=== PATIENT | female | born 1935 | race Caucasian/White ===

== ENCOUNTER 2021-01-15 11:55 | Inpatient (IN) | payer MEDICARE ==
[~2021-01-15] VITALS: Ht 152.4 cm; Wt 47.3 kg
[2021-01-15 14:23] LABS: BASO % 0.4 % (0.0-2.0); EOS # 0.1 K/mm3 (0.0-0.7); EOS % 1.5 % (0-4.0); GRAN # 5.1 K/mm3 (1.4-6.5); GRAN % 75.2 % (42.2-75.2); HEMOGLOBIN 10.5 g/dl (12.5-16.0); LYMPH % 14.6 % (20.0-51.0); MEAN CELL VOLUME 91 fl (80.0-100.0); MEAN CORPUSCULAR HEMOGLOBIN 30 pg (27.0-31.0); MEAN CORPUSCULAR HGB CONC 33 g/dl (33.0-37.0); MEAN PLATELET VOLUME 9.4 fl (7.4-10.4); MONO # 0.5 K/mm3 (0.1-0.6); MONO % 7.7 % (1.7-9.3); PLATELET COUNT 120 K/mm3 (130-400); RED BLOOD COUNT 3.47 M/mm3 (4.10-5.30); REDCELL DISTRIBUTION WIDTH-CV 14.4 % (11.5-14.5)
[2021-01-15 14:24] LABS: HEMATOCRIT 31.5 % (37.0-47.0)
[2021-01-15 14:40] LABS: ALBUMIN 3.5 gm/dL (3.4-4.8); ALKALINE PHOSPHATASE 91 U/L (40-150); ANION GAP 11 mmol/L (7-16); AST,SGOT 21 U/L (5-34); BILIRUBIN,TOTAL 1.4 mg/dL (0.2-1.2); BLOOD UREA NITROGEN 22 mg/dL (10-20); C-REACTIVE PROTEIN 5.53 mg/dL (0.00-0.50); CALCIUM 8.6 mg/dL (8.4-10.2); CARBON DIOXIDE 23 mmol/L (23-31); CHLORIDE 104 mmol/L (98-107); GLUCOSE 81 mg/dL (70-99); POTASSIUM 3.8 mmol/L (3.5-4.5); SODIUM 138 mmol/L (136-145); TOTAL PROTEIN 6.8 gm/dL (6.2-8.1)
[2021-01-15 14:41] LABS: ALANINE AMINOTRANSFERASE < 6 U/L (0-55)
[2021-01-15 14:48] LABS: TROPONIN-I < 0.010 ng/mL (0.00-0.033)
[2021-01-15] MEDS ORDERED: PROTONIX20 MG PO (16:40)
[2021-01-15] MEDS ORDERED: SINEMET 25/101 UDTAB PO (16:40)
[2021-01-15] MEDS ORDERED: SYNTHROID0.05 MG/TA PO (16:40)
--- NOTE | 2021-01-15 19:50 | NUR ---
DAY SHIFT RNCHERYL REPORTS PATIENT ARRIVED TO ROOM 303, PER ADMIT FROM E.D. PUT TO BED.
[2021-01-15 20:05] VITALS: BP 141/59; PULSE 63; TEMP 97.8
--- NOTE | 2021-01-15 20:30 | NUR ---
PATIENT EATING LATE SUPPER TRAY REPORTED BY PCT.
--- NOTE | 2021-01-15 21:30 | NUR ---
PATIENT INCONTINENT OF LARGE AMOUNT OF STOOL AND URINE. PERICARE/INCONTINENT CARE GIVEN, PATIENT TOLERATED REPOSITIONING FOR CLEAN UP FAIRLY WELL WITH SOME COMPLAINTS OF MOVEMENT OF RLE. OBSERVED NO SKIN PROBLEMS TO COCCYX AREA OR BUTTOCKS/LOWER BACK. OBSERVED SKIN TEAR TO L ELBOW, WITH SURROUND SKIN AREA CLEAR OF REDNESS. REMOVED BANDAID DRESSING FROM L ELBOW AREA.
--- NOTE | 2021-01-15 23:40 | NUR ---
REFUSED TO TAKE HS SINEMET, REPORTING NAUSEA WHEN SHE TAKES HER SINEMET WITHOUT FOOD. REFUSED OFFER TO TAKE MED WITH CRACKERS AT THIS TIME.
[2021-01-16] VITALS (8 sets, daily range): BP systolic 112–145; BP diastolic 43–72; PULSE 61–72; TEMP 97.3–98.5
[2021-01-16 06:37] LABS: BASO % 0.4 % (0.0-2.0); EOS # 0.2 K/mm3 (0.0-0.7); GRAN # 3.6 K/mm3 (1.4-6.5); GRAN % 67.6 % (42.2-75.2); LYMPH # 1.1 K/mm3 (1.2-3.4); LYMPH % 20.8 % (20.0-51.0); MEAN CELL VOLUME 93 fl (80.0-100.0); MEAN CORPUSCULAR HGB CONC 32 g/dl (33.0-37.0); MEAN PLATELET VOLUME 9.3 fl (7.4-10.4); MONO # 0.4 K/mm3 (0.1-0.6); MONO % 7.6 % (1.7-9.3); PLATELET COUNT 110 K/mm3 (130-400); RED BLOOD COUNT 3.11 M/mm3 (4.10-5.30); REDCELL DISTRIBUTION WIDTH-CV 14.5 % (11.5-14.5)
[2021-01-16 06:52] LABS: CALCIUM 8.3 mg/dL (8.4-10.2); CREATININE, serum 1.1 mg/dL (0.57-1.11); POTASSIUM 3.8 mmol/L (3.5-4.5)
[2021-01-16 07:00] LABS: HEMATOCRIT 28.8 % (37.0-47.0); HEMOGLOBIN 9.3 g/dl (12.5-16.0); MEAN CORPUSCULAR HEMOGLOBIN 30 pg (27.0-31.0)
--- NOTE | 2021-01-16 07:20 | NUR ---
CHANGE OF SHIFT REPORT GIVEN TO DAY SHIFT RNCHERYL. PATIENT REPORTED NO NEEDS FOR PAIN DURING THE SHIFT DESPITE POSTURING INDICATING DISCOMFORT TO R HIP WITH MOVEMENT. IV FLUIDS INFUSING WITH NO PROBLEMS DURING THE SHIFT.
--- NOTE | 2021-01-16 11:58 | NUR ---
Review for COVID isolation necessity. Patient reports daughter who is nurse did home COVID test 01/03/21 which was positive. Patient is COVID vaccinated. Today is Day 13 post COVID positive test. Patient is afebrile and on room air. Will discontinue COVID isolation. Ronen Conklin RN
--- NOTE | 2021-01-16 12:52 | NUR ---
The patient is in isolation for COVID. FELIPE contacted the patient's daughter, Marleny (ph#[phone]), to discuss discharge plan. Marleny informed FELIPE that she is actually the patient's aadaiole-uc-ilt. She states that the patient lives with her and her (patient's son) Antonio ph#[phone] in [place]. She reports that the patient has been needing assistance with ADLs prior to coming to the hospital and that the patient has a rollator. Marleny reports that her and Antonio have been helping the patient with her ADLs. She states that the patient was just set up with [facility] and that they were suppose to be coming out tomorrow. Marleny reports that the patient was just set up with the PCP, Dr. Ochoa. Her first appointment with Dr. Ochoa is next Tuesday. Marleny reports that the patient was living in [place] for two years and just moved back in with her son and Marleny. The patient does not have a DPOA-HC. Marleny reports that she believes that the patient has a DPOA-HC, but that those documents are back in [place]. Marleny reports that the patient is not and has two living children: Antonio and Jesika. PT is recommending SNF or swing bed. Marleny reports that they would be interested in rehab for the patient. The patient has a pelvic fracture and has been having multiple falls at home. The patient is observation status. FELIPE informed aMrleny that due to the patient's status, that SNF will likely be private pay. Marleny verbalized understanding and expressed her frustration. Marleny reports that her and the patient's son cannot afford to private pay for a facility. She is open for FELIPE to send referrals to [facility] and [facility]. FELIPE consulted [place] with [facility]. Mesha reports that they are not able to take anyone right now, but can re-evaluate on Tuesday. FELIPE contacted and faxed a [facility]. FELIPE contacted and faxed a referral to [facility], MICHELLE, Frankie, and Sof[facility] to inquire if they can consider doing the COVID waiver. Due to the patient also being positive for COVID, FELIPE staffed with the microbiology lab analyst, Lubna. Lubna reports that the patient tested positive on 01/03 and would be able to come out of isolation. SW informed the facilities of this. Nellie, at [facility], reports that due to the patient's worsening symptoms, they would still have to wait another 10 days before considering taking the patient. Awaiting the other facilities screens.
--- NOTE | 2021-01-16 15:30 | NUR ---
Eamon, at [facility], reports that the COVID waiver does not apply to advantage plans. SW inquired if they could still request for auth. Eamon reports that since the patient is observation status, insurance will deny. Gisela, at [facility], reports that the COVID is still good, but cannot take the patient today. Sofy [facility] reports that they have to look more into the patient's insurance and the soonest that they could take the patient, if they accept, would be on Tuesday. René, at [facility], reports he believes the patient will qualify. He states that he go ahead and work on submitting for auth today, but due to the patient having commercial insurance and it being Tuesday, he will probably not hear anything back until Tuesday. FELIPE to update the patient's idneygbu-vj-qul.
--- NOTE | 2021-01-16 15:51 | NUR ---
PT TAKEN OUT OF ISOLATION FOR COVID PER INFECTIOUS DISEASE RN. PT WILL TRANSFER TO SURGICAL UNIT AFTER CT OBTAINED. REPORT GIVEN TO JONN SCHERER.
--- NOTE | 2021-01-16 16:45 | NUR ---
Pt arrived to the floor from CT. Pt is alert and oriented, minimal pain complaints, she states increases with movement, but is tolerable. Gave her fresh ice water and some tylenol for a headache. No other needs, will continue to monitor.
--- NOTE | 2021-01-16 18:00 | NUR ---
Pt requested her evening Sinemet with dinner at this time, which was given. Pt denies any other needs, call light within reach, will continue to monitor
--- NOTE | 2021-01-16 21:00 | NUR ---
PT IN BED, IS ALERT AND ORIENTED X3. HAS IVF TO RFA, INFUSING WITHOUT PROBLEM. DENIES PAIN AT PRESENT TIME, REPORTS ACTIVITY CAUSES PAIN TO RT LEG. TOOK SCHEDULED PM MEDS WITH SUPPER.
[2021-01-17] VITALS (17 sets, daily range): BP systolic 77–138; BP diastolic 32–64; PULSE 50–78; TEMP 94–98.3
--- NOTE | 2021-01-17 00:15 | NUR ---
PT REPOSITIONED IN BED. INCONTINENT OF URINE, PURA CARE GIVEN, ATTENDS CHANGED.
--- NOTE | 2021-01-17 05:39 | NUR ---
PT REFUSED SYNTHROID THIS AM REPORTS SHE ONLY TAKES IT TUE-TUESDAY, NOT ON TUESDAY OR TUESDAY.
--- NOTE | 2021-01-17 06:48 | NUR ---
Report received from GILMER Ulloa. Pt. resting in bed w/ eyes closed. Call light and belongings in reach. Bed alarm on.
[2021-01-17 06:51] LABS: BASO % 0.6 % (0.0-2.0); EOS # 0.2 K/mm3 (0.0-0.7); EOS % 3.2 % (0-4.0); GRAN # 3.4 K/mm3 (1.4-6.5); GRAN % 66.1 % (42.2-75.2); MEAN CELL VOLUME 92 fl (80.0-100.0); MEAN CORPUSCULAR HGB CONC 33 g/dl (33.0-37.0); MEAN PLATELET VOLUME 9.7 fl (7.4-10.4); MONO # 0.5 K/mm3 (0.1-0.6); MONO % 10.5 % (1.7-9.3); PLATELET COUNT 112 K/mm3 (130-400); RED BLOOD COUNT 2.93 M/mm3 (4.10-5.30); REDCELL DISTRIBUTION WIDTH-CV 14.4 % (11.5-14.5)
[2021-01-17 07:01] LABS: HEMATOCRIT 26.9 % (37.0-47.0); HEMOGLOBIN 8.8 g/dl (12.5-16.0); MEAN CORPUSCULAR HEMOGLOBIN 30 pg (27.0-31.0)
[2021-01-17 07:43] LABS: ALBUMIN 2.9 gm/dL (3.4-4.8); CREATININE, serum 0.99 mg/dL (0.57-1.11); MAGNESIUM 1.3 mg/dL (1.6-2.6); PHOSPHOROUS 2.5 mg/dL (2.3-4.7); POTASSIUM 3.4 mmol/L (3.5-4.5)
--- NOTE | 2021-01-17 08:40 | NUR ---
Pt. progressing w/ plan of care. Pt. denies pain. This RN explained to the patient she is NPO for the time being. Needs addressed, call light and belongings in reach.
--- NOTE | 2021-01-17 11:37 | NUR ---
Initial visit attempt; Patient sleeping, Well Driller left Prayer Card letting patient know of the availability of Spiritual Care at our hospital.
--- NOTE | 2021-01-17 11:40 | NUR ---
Plan for pt to go to surgery. Pt. has been NPO except meds. NICHOLAS Chua and Dr. Avendaño notified. Pt.'s bomydljf-jl-cbv Marleny notified on the telephone.
--- NOTE | 2021-01-17 15:52 | NUR ---
Pt. back from surgery. Pt. resting comfortably and requesting food to eat. Plan for pt. to start clear liquids and to advance as tolerated. Pt.'s wjegnsqv-un-qsn Marleny involved with plan of care. Report received from GILMER Hutchinson. Pt.'s circulation checks WNL. Three sites to R hip c/d/i, visible w/ tegaderm and gauze.
--- NOTE | 2021-01-17 17:34 | NUR ---
Pt.'s BP low at this time. Dr. Avendaño called on the phone. Dr. Avendaño made aware of low BP. Unable to get temp at this time, k-pad on patient. ICU called to obtain rectal thermometer. Pt. reports feeling comfortable and tired at this time.
--- NOTE | 2021-01-17 17:52 | NUR ---
NICHOLAS Mirza in this evening. NICHOLAS Mirza aware of pt.'s latest vital signs, fluctuating blood pressure, and her most recent rectal temp. NICHOLAS Mirza reports she will be in to see patient and her dumdsetj-rz-yzs shortly.
--- NOTE | 2021-01-17 19:14 | NUR ---
Report provided to GILMER Anne. Dana has been on patient. Frequent vital signs in place. Plan for a urine using a straight cath to be obtained tonight.
[2021-01-17 19:38] LABS: BASO % 0.3 % (0.0-2.0); EOS # 0.1 K/mm3 (0.0-0.7); EOS % 1.2 % (0-4.0); GRAN # 7.7 K/mm3 (1.4-6.5); GRAN % 71.3 % (42.2-75.2); LYMPH # 1.8 K/mm3 (1.2-3.4); LYMPH % 16.5 % (20.0-51.0); MEAN CELL VOLUME 91 fl (80.0-100.0); MEAN CORPUSCULAR HGB CONC 33 g/dl (33.0-37.0); MEAN PLATELET VOLUME 9.5 fl (7.4-10.4); MONO % 9.5 % (1.7-9.3); PLATELET COUNT 137 K/mm3 (130-400); RED BLOOD COUNT 2.34 M/mm3 (4.10-5.30); REDCELL DISTRIBUTION WIDTH-CV 14.6 % (11.5-14.5)
[2021-01-17 19:39] LABS: HEMATOCRIT 21.2 % (37.0-47.0); MEAN CORPUSCULAR HEMOGLOBIN 30 pg (27.0-31.0)
[2021-01-17 19:56] LABS: ALBUMIN 2.5 gm/dL (3.4-4.8); ALKALINE PHOSPHATASE 71 U/L (40-150); ANION GAP 9 mmol/L (7-16); AST,SGOT 17 U/L (5-34); BILIRUBIN,TOTAL 0.6 mg/dL (0.2-1.2); BLOOD UREA NITROGEN 13 mg/dL (10-20); CALCIUM 7.1 mg/dL (8.4-10.2); CARBON DIOXIDE 16 mmol/L (23-31); CHLORIDE 114 mmol/L (98-107); CREATININE, serum 1.03 mg/dL (0.57-1.11); GLUCOSE 139 mg/dL (70-99); POTASSIUM 3.4 mmol/L (3.5-4.5); SODIUM 139 mmol/L (136-145); TOTAL PROTEIN 4.8 gm/dL (6.2-8.1)
[2021-01-17 20:02] LABS: ALANINE AMINOTRANSFERASE < 6 U/L (0-55)
[2021-01-17 21:37] LABS: COLLECTION METHOD CATHETER
--- NOTE | 2021-01-17 21:40 | NUR ---
Pt. laying in bed. Pt. is A&OX3, assessment complete. IV to rt. forearm patent, IV fluids infusing per orders. Pt. vitals have improved. Spivey catheter placed for urinary incontinence. Pt. tolerated well. Pt. given tramadol for pain of 6 to rt. hip. Bearhugger still on pt., temp has also improved, see vitals. Pt. denies further needs, call light within reach.
[2021-01-17 21:42] LABS: MUCOUS Present (NOT PRESENT); PH 5 (5-8); SQUAMOUS EPITHELIAL None Seen /hpf (0-10); URINE APPEARANCE Clear (CLEAR/HAZY); URINE BACTERIA Rare (NONE SEEN); URINE BILIRUBIN Negative (NEGATIVE); URINE BLOOD Negative (NEGATIVE); URINE COLOR Yellow (YELLOW); URINE GLUCOSE Negative (NEGATIVE); URINE KETONE Negative (NEGATIVE); URINE LEUKOCYTE ESTERASE Trace (NEGATIVE); URINE NITRATE Negative (NEGATIVE); URINE PROTEIN(semi-quant) Negative (NEGATIVE); URINE RBC 0-2 /hpf (0-2); URINE UROBILINOGEN Negative (NEGATIVE)
[2021-01-18] VITALS (15 sets, daily range): BP systolic 96–123; BP diastolic 31–79; PULSE 54–99; TEMP 14
[2021-01-18 07:14] LABS: ALBUMIN 2.2 gm/dL (3.4-4.8); CALCIUM 6.9 mg/dL (8.4-10.2); CREATININE, serum 1.01 mg/dL (0.57-1.11); MAGNESIUM 2.2 mg/dL (1.6-2.6); PHOSPHOROUS 2.5 mg/dL (2.3-4.7); POTASSIUM 4.4 mmol/L (3.5-4.5)
--- NOTE | 2021-01-18 08:20 | NUR ---
Pt. progressing w/ plan of care. Pt. boosted up in bed and assessment complete. Pt. reports generalized pain. Pt. requesting pain medication after she eats her breakfast. Breakfast ordered. SCDs and TEDs on. Call light and belongings in reach, bed alarm on.
[2021-01-18 10:58] LABS: MEAN CELL VOLUME 93 fl (80.0-100.0); MEAN CORPUSCULAR HGB CONC 33 g/dl (33.0-37.0); MEAN PLATELET VOLUME 9.6 fl (7.4-10.4); PLATELET COUNT 124 K/mm3 (130-400); RED BLOOD COUNT 1.39 M/mm3 (4.10-5.30); REDCELL DISTRIBUTION WIDTH-CV 15.1 % (11.5-14.5)
[2021-01-18 11:06] LABS: HEMOGLOBIN 4.2 g/dl (12.5-16.0); MEAN CORPUSCULAR HEMOGLOBIN 30 pg (27.0-31.0)
[2021-01-18 11:07] LABS: HEMATOCRIT 12.9 % (37.0-47.0)
--- NOTE | 2021-01-18 11:08 | NUR ---
Hemoglobin and hematocrit critical results at this time. Dr. Avendaño notified on the telephone. Plans to transfuse blood today. New orders obtained.
--- NOTE | 2021-01-18 11:33 | NUR ---
Ortho HARVEST WORKER FIELD CROP Daphnie and Dr. Stevenson also made aware of pt.'s H&H.
[2021-01-18 13:39] LABS: EOSINOPHIL 1 % (0-4); LYMPHOCYTE 17 % (20.0-51.0); NEUTROPHILS 79 % (42.0-75.2)
[2021-01-18 13:41] LABS: ANISOCYTOSIS 1+; HYPOCHROMIA 1+
[2021-01-18 13:42] LABS: PLATELET ESTIMATE DECREASED (NORMAL)
--- NOTE | 2021-01-18 13:50 | NUR ---
Axillary temp obtained, temp is 94.0. Dr. Avendaño notified. Dr. Avendaño requesting for Bearhugger to be applied as well as continue to begin blood transfusion. The blood transfusion has begun, plan for this RN to stay in pt.'s room for 15 minutes to observe for a transfusion reaction.
--- NOTE | 2021-01-18 15:15 | NUR ---
First of two blood transfusions continues to infuse. No s/s reaction. Bearhugger applied to patient, no improvement in temp at this time. Bearhugger setting changed to high in attempt to elevate pt.'s temperature. Pt. resting in bed w/ eyes closed. Pt.'s son Antonio and hxqdpqah-nq-fey Marleny in to visit today. Family updated on plan of care. Pt. reports she is comfortable. Call light and belongings in reach. Bed alarm on.
--- NOTE | 2021-01-18 18:47 | NUR ---
Pt.'s temp is low, Dr. Avendaño aware. Dr. Avendaño would like for the Beargger to remain on. Pt. on second unit of blood. First 15 minutes of blood transfusion complete, no s/s reaction noted. Plan for this RN to give report to night nurse.
--- NOTE | 2021-01-18 19:30 | NUR ---
Pt. laying in bed. Pt. is A&OX3, assessment complete. IV to lt. forarm patent. Bloot transfusing per orders at this time. Vitals noted. Pt. continues to have low temps but are improving. See vitals. Dressings to rt. hip CDI. Pt. reports pain at a 3 on pain scale. Pt. denies further needs.
--- NOTE | 2021-01-18 21:26 | NUR ---
Pt.'s transfusion complete. Pt. tolerated well.
[2021-01-18 22:25] LABS: HEMATOCRIT 24.2 % (37.0-47.0); HEMOGLOBIN 8.3 g/dl (12.5-16.0)
[2021-01-19] VITALS (7 sets, daily range): BP systolic 91–132; BP diastolic 34–96; PULSE 58–74; TEMP 97.4–98.4
[2021-01-19 06:59] LABS: BASO % 0.4 % (0.0-2.0); EOS # 0.3 K/mm3 (0.0-0.7); EOS % 2.9 % (0-4.0); GRAN # 7.8 K/mm3 (1.4-6.5); GRAN % 70.9 % (42.2-75.2); LYMPH # 1.8 K/mm3 (1.2-3.4); LYMPH % 15.9 % (20.0-51.0); MEAN CELL VOLUME 89 fl (80.0-100.0); MEAN CORPUSCULAR HGB CONC 35 g/dl (33.0-37.0); MEAN PLATELET VOLUME 9.5 fl (7.4-10.4); MONO % 9.4 % (1.7-9.3); PLATELET COUNT 100 K/mm3 (130-400); RED BLOOD COUNT 2.59 M/mm3 (4.10-5.30); REDCELL DISTRIBUTION WIDTH-CV 14.7 % (11.5-14.5)
[2021-01-19 07:00] LABS: HEMATOCRIT 23.1 % (37.0-47.0); MEAN CORPUSCULAR HEMOGLOBIN 31 pg (27.0-31.0)
[2021-01-19 07:14] LABS: ALBUMIN 2.3 gm/dL (3.4-4.8); CALCIUM 7.3 mg/dL (8.4-10.2); CREATININE, serum 1.23 mg/dL (0.57-1.11); PHOSPHOROUS 3.4 mg/dL (2.3-4.7); POTASSIUM 4.6 mmol/L (3.5-4.5)
--- NOTE | 2021-01-19 08:00 | NUR ---
PATIENT IS A&O. VSS. MINIMAL C/O PAIN, RATED AT 3/10. GAVE PRN TYLENOL BEFORE AM THERAPY. RIGHT HIP SITE X3 ARE CD&I WITH GAUZE & TEGA DERM. TEDS & SCD'S T TO BLE. POSITIVE PEDAL PULSES TO BLE. DOTSON TO DD WITH MOD AMOUNTS OF CLEAR YELLOW URINE. IV FLUIDS INFUSING VIA PUMP INTO LEFT FORARM. HEAD TO TOE ASSESSMENT COMPLETE, SEE CHARTING. DNR STATUS. AM MEDS GIVEN. BREAKFAST TRAY AT BEDSIDE. CALL LIGHT IN REACH. BED ALARM ON.
--- NOTE | 2021-01-19 11:16 | NUR ---
Initial visit; Patient declined visit.
--- NOTE | 2021-01-19 15:45 | NUR ---
Transplant Coordinator [facility], and [facility]. SW met with patient and patient's daughter in law, Marleny to follow up on discharge plan. SW reviewed placement options and patient does not feel she can tolerate or wish to do three hours of therapy daily at acute inpatient rehab. Patient would prefer SNF and their first preference would be [facility]. SW asked patient about her insurance as there were conflicting insurance carriers. Patient reports she has a Medicare Advantage Plan ([employer]). Marleny reports she will bring in the card. Patient would like to completed a new DPOA-HC as her previous one was left in [place] when she moved. SW assisted patient in completing form and patient chose to designate Marleny and her grandson, James. FELIPE provided original and copy to patient, then placed copy in patient's chart. FELIPE updated Whitney, IPR Director and René at [facility]. FELIPE also contacted Eamon who continues to screen referral. Patient was made inpatient status over the weekend. Discharge Plan: Pending referrals at [facility] and [facility].
--- NOTE | 2021-01-19 16:05 | NUR ---
Post Splitter faxed clinicals to [facility] for SNF authorization.
[2021-01-20 03:07] VITALS: BP 115/44; PULSE 62; TEMP 97.6
--- NOTE | 2021-01-20 06:03 | NUR ---
PT REFUSING SYNTHROID ET PROTONIX PO @ THIS TIME. PT IS DROWSY ET STATES THAT IT IS TOO EARLY TO TAKE PILLS. PT EDUCATED ON SYNTHROID ADMINISTRATION, SHOWS DISINTREST ET CLOSES EYES. RESPIRATIONS UNLABORED. DOTSON CATHETER DRAINING DEPENDENTLY. URINE IS LIGHT EMERY ET CLEAR. BED ALARM ON. CALL LIGHT WITHIN REACH.
[2021-01-20 06:46] LABS: BASO # 0.1 K/mm3 (0.0-0.2); BASO % 0.6 % (0.0-2.0); EOS # 0.3 K/mm3 (0.0-0.7); EOS % 4.1 % (0-4.0); GRAN # 5.5 K/mm3 (1.4-6.5); GRAN % 66.3 % (42.2-75.2); LYMPH # 1.6 K/mm3 (1.2-3.4); LYMPH % 19.4 % (20.0-51.0); MEAN CELL VOLUME 91 fl (80.0-100.0); MEAN CORPUSCULAR HGB CONC 34 g/dl (33.0-37.0); MEAN PLATELET VOLUME 9.6 fl (7.4-10.4); MONO # 0.7 K/mm3 (0.1-0.6); PLATELET COUNT 100 K/mm3 (130-400); RED BLOOD COUNT 2.54 M/mm3 (4.10-5.30); REDCELL DISTRIBUTION WIDTH-CV 15.4 % (11.5-14.5)
[2021-01-20 06:49] LABS: HEMATOCRIT 23.2 % (37.0-47.0); HEMOGLOBIN 7.9 g/dl (12.5-16.0); MEAN CORPUSCULAR HEMOGLOBIN 31 pg (27.0-31.0)
[2021-01-20 07:04] LABS: ALBUMIN 2.2 gm/dL (3.4-4.8); CALCIUM 7.6 mg/dL (8.4-10.2); CREATININE, serum 1.42 mg/dL (0.57-1.11); MAGNESIUM 1.9 mg/dL (1.6-2.6); PHOSPHOROUS 3.1 mg/dL (2.3-4.7); POTASSIUM 4.4 mmol/L (3.5-4.5)
[2021-01-20 07:55] VITALS: BP 143/49; PULSE 62; TEMP 97.8
--- NOTE | 2021-01-20 08:00 | NUR ---
PATIENT IS A&O. VSS. RATES PAIN IN RIGHT HIP AT REST AT 2-3 ON PAIN SCALE. GAVE PRN TYLENOL BEFORE AM THERAPY. RIGHT HIP DRESSINGS ARE CD&I WITH GAUZE & TEGADERM. TEDS & SCD'S TO BLE. POSITIVE PEDAL PULSES TO BLE. DOTSON TO DD WITH MOD AMOUNTS OF CLEAR YELLOW URINE NOTED. LEFT FORARM IV TO INT. AM MEDS GIVEN WITH BREAKFAST. HEAD TO TOE ASSESSMENT COMPLETE, SEE CHARTING. DNR STATUS. NO OTHER NEEDS AT THIS TIME. CALL LIGHT IN REACH. BED ALARM ON.
[2021-01-20 12:00] VITALS: BP 78/50; PULSE 62; TEMP 97.3
--- NOTE | 2021-01-20 12:40 | NUR ---
PCT REPORTED LOW B/P, CHECKED TWICE. HOSPITALIST AT BEDSIDE. PATIENT ASSISTED BACK INTO BED. IV FLUIDS STARTED. B/P RECHECK IS NOW 102/53. PATIENT RESTING FINE AND IS STABLE. FAMILY AT BEDSIDE.
[2021-01-20 13:00] VITALS: BP 102/53
--- NOTE | 2021-01-20 13:50 | NUR ---
HOSPITALIST AT BEDSIDE, SEE ORDERS.
--- NOTE | 2021-01-20 13:57 | NUR ---
Operative Supervisor received a phone call from [facility] and was advised that they do not manage patient's plan. FELIPE provided this update to Eamon who advised he followed up with [facility] and according to them, [facility] does manage the plan. FELIPE followed up with [facility] and had this case escalated. FELIPE received a call back from [facility] and confirmed they do in fact manage this patient's plan. [facility] provided authorization reference #[id number] and advised patient could go to SNF today or tomorrow. FELIPE provided this number to Eamon at [facility] who advised they are able to accept patient at time of discharge. FELIPE attended clinical rounds with the team and patient is not ready discharge for today, but will likely be ready tomorrow. FELIPE updated patient and her daughter in law, Marleny that [facility] can accept. Patient is agreeable to this plan. Discharge Plan: [facility].
[2021-01-20 17:51] VITALS: BP 142/44; PULSE 67; TEMP 97.7
--- NOTE | 2021-01-20 20:30 | NUR ---
PT RESTING IN BED WITH HEAD ELEVATED. IVF INFUSING INTO PERIPHERAL IV IN LEFT FOREARM. PT STATES THAT THE SHEETS OVER HER ARE WET. PT'S IV IS SEEN LEAKING. DENIES PAIN @ SITE BUT THERE IS REDNESS. IV IS DISCONTINUED ET Yohan LEE RN SUCCESSFULLY INSERTS NEW IV INTO PT'S RIGHT FOREARM. SITE IS PINK ET FLUSHES EASILY. IVF ARE RESUMED. PT'S DOTSON CATHETER WAS TAKEN OUT BY DAY SHIFT NURSE. PT HAS NOT URINATED. PT DENIES OTHER NEEDS. BED ALARM ON. CALL LIGHT WITHIN REACH.
[2021-01-20 22:57] VITALS: BP 105/38; PULSE 79; TEMP 97.7
[2021-01-21 00:11] VITALS: BP 135/49; PULSE 71; TEMP 97.8
--- NOTE | 2021-01-21 06:30 | NUR ---
Report received from GILMER Quevedo. Patient is resting comfortably in bed. Call light and bedside table are within reach. WIll continue to monitor patient throughout shift.
--- NOTE | 2021-01-21 07:08 | NUR ---
PT RESTING IN BED @ THIS TIME, ORIENTED X4, IS [place]. PT WAS ASSISTED X1 TO BSC LAST NIGHT, WAS INCONTINENT OF URINE. TRANSFERRED WITH 2 ASSIST, GAIT BELT ET WALKER. PT IS HESITANT TO MOVE ET VERY SLOWLY SHUFFLES. PT INCONTINENT OF URINE AGAIN THIS MORNING AFTER SLEEPING MOST OF NIGHT. LINENS ARE CHANGED ET INCONTINENT CARE PROVIDED. PT'S POSTERIOR LABIA IS NOTICED TO BE EDEMATOUS, PT DENIES PAIN IN THAT AREA. SKIN IS NOT RED BUT IS PINK. PT DENIES PAIN @ REST BUT GRIMACES ET GROANS WHILE ROLLING IN BED. IVF INFUSING. PT DENIES OTHER NEEDS. BED ALARM ON. CALL LIGHT WITHIN REACH.
[2021-01-21 08:02] VITALS: BP 135/45; PULSE 51; TEMP 97.6
[2021-01-21 08:14] LABS: CALCIUM 7.6 mg/dL (8.4-10.2); CREATININE, serum 1.2 mg/dL (0.57-1.11); MAGNESIUM 1.7 mg/dL (1.6-2.6); PHOSPHOROUS 2.8 mg/dL (2.3-4.7); POTASSIUM 4.5 mmol/L (3.5-4.5)
[2021-01-21 08:15] LABS: BASO # 0.1 K/mm3 (0.0-0.2); BASO % 0.9 % (0.0-2.0); EOS # 0.3 K/mm3 (0.0-0.7); EOS % 4.3 % (0.0-4.0); GRAN # 3.6 K/mm3 (1.4-6.5); GRAN % 61.8 % (42.2-75.2); HEMOGLOBIN 7.7 g/dl (12.5-16.0); LYMPH # 1.2 K/mm3 (1.2-3.4); LYMPH % 20.8 % (20.0-51.0); MEAN CELL VOLUME 92 fl (80.0-100.0); MEAN CORPUSCULAR HEMOGLOBIN 31 pg (27-31); MEAN CORPUSCULAR HGB CONC 34 g/dl (33.0-37.0); MEAN PLATELET VOLUME 9.6 fl (7.4-10.4); MONO # 0.7 K/mm3 (0.1-0.6); MONO % 11.2 % (1.7-9.3); PLATELET COUNT 115 K/mm3 (130-400); RED BLOOD COUNT 2.47 M/mm3 (4.10-5.30); REDCELL DISTRIBUTION WIDTH-CV 15.5 % (11.5-14.5)
[2021-01-21 08:16] LABS: HEMATOCRIT 22.6 % (37.0-47.0)
[2021-01-21] MEDS ORDERED: ASPI325T6 PO (08:30)
[2021-01-21] MEDS ORDERED: TYLENOL 325MG325 MG PO (08:30)
--- NOTE | 2021-01-21 12:19 | NUR ---
Patient has been discharged from room [address] to [facility]. The room has been cleared of personal belongings, include cell phone and archives specialist. Packet given to the transportation team. Patient was also escorted out by the SOCIAL MEDIA CONTENT SPECIALIST.
--- NOTE | 2021-01-21 13:28 | NUR ---
Drafter (Cad) Electrical was notified that patient is ready for discharge today. FELIPE contacted [facility] who advised they can accept patient and set discharge time for 1145. FELIPE provided discharge time to patient who is in agreement and asked FELIPE to contact Marleny as she needs to go to the bathroom. FELIPE contacted patient's DPOA-HC, Marleny to provide update on discharge time. FELIPE also reviewed IM form over the phone with Marleny who provided verbal consent as signature. FELIPE placed form on chart and placed copy in patient's discharge packet. FELIPE faxed discharge orders and negative COVID results to Eamon at [facility]. Discharge Plan: [facility] SNF
== END 2021-01-21 12:15 | DRG 956 ==
LOC: COL.ER 11:55 → MEDICAL 16:57 → SURG 16:57
PROVIDERS: Nurse Practitioner; Orthopaedic Surgery Sports Medicine; Physician Assistant; Student in an Organized Health Care Education/Training Program; ADMIT Internal Medicine
PROC: 0QH634Z Insertion of Internal Fixation Device into Right Upper Femur, Percutaneous Approach (ICD-10-PCS; principal; 2021-01-17 13:00)
DX: S72.114A Nondisplaced fracture of greater trochanter of right femur, initial encounter for closed fracture (principal); S32.591A Other specified fracture of right pubis, initial encounter for closed fracture; U07.1 COVID-19; S32.431A Displaced fracture of anterior column [iliopubic] of right acetabulum, initial encounter for closed fracture; J12.82 Pneumonia due to coronavirus disease 2019; N17.9 Acute kidney failure, unspecified; D62 Acute posthemorrhagic anemia; G20 Parkinson's disease; E03.9 Hypothyroidism, unspecified; I10 Essential (primary) hypertension; K21.9 Gastro-esophageal reflux disease without esophagitis; E87.6 Hypokalemia; E83.42 Hypomagnesemia; Z66 Do not resuscitate; I95.9 Hypotension, unspecified; Z87.891 Personal history of nicotine dependence; W18.39XA Other fall on same level, initial encounter; Y93.89 Activity, other specified; Y92.89 Other specified places as the place of occurrence of the external cause; Z23 Encounter for immunization
CPT/HCPCS: OP; 99232-AI; 99233-AI; 99239; A4314; A9284; C1713; G0378; J0696; J1644; J2270; J2405; J2704; J2795; J3475; J3480; J7030; J7040; J7120; P9016

== ENCOUNTER 2021-01-27 13:41 | Emergency (ER) | payer MEDICARE ==
[~2021-01-27] VITALS: Ht 152.4 cm; Wt 52.7 kg
[~2021-01-27 13:41] MED LIST: ASPI325T6 PO; PROTONIX20 MG PO; SINEMET 25/101 UDTAB PO; SYNTHROID0.05 MG/TA PO; TYLENOL 325MG325 MG PO
[2021-01-27 14:19] LABS: MEAN CELL VOLUME 92 fl (80.0-100.0); MEAN CORPUSCULAR HGB CONC 33 g/dl (33.0-37.0); MEAN PLATELET VOLUME 8.8 fl (7.4-10.4); PLATELET COUNT 180 K/mm3 (130-400); RED BLOOD COUNT 2.99 M/mm3 (4.10-5.30); REDCELL DISTRIBUTION WIDTH-CV 15.6 % (11.5-14.5)
[2021-01-27 14:25] LABS: HEMATOCRIT 27.4 % (37.0-47.0); HEMOGLOBIN 9.1 g/dl (12.5-16.0); MEAN CORPUSCULAR HEMOGLOBIN 30 pg (27-31)
[2021-01-27 14:28] LABS: PROTHROMBIN TIME 11.5 SECONDS (9.7-12.8)
[2021-01-27 14:31] LABS: PARTIAL THROMBOPLASTIN TIME 30.2 SECONDS (26.0-37.0)
[2021-01-27 14:43] LABS: ALBUMIN 2.7 gm/dL (3.4-4.8); ALKALINE PHOSPHATASE 117 U/L (40-150); ANION GAP 11 mmol/L (7-16); AST,SGOT 15 U/L (5-34); BILIRUBIN,TOTAL 1.4 mg/dL (0.2-1.2); BLOOD UREA NITROGEN 23 mg/dL (10-20); CARBON DIOXIDE 22 mmol/L (23-31); CHLORIDE 101 mmol/L (98-107); CREATININE, serum 1.18 mg/dL (0.57-1.11); GLUCOSE 91 mg/dL (70-99); SODIUM 134 mmol/L (136-145); TOTAL PROTEIN 5.5 gm/dL (6.2-8.1)
[2021-01-27 14:48] LABS: ALANINE AMINOTRANSFERASE < 6 U/L (0-55)
[2021-01-27 14:52] LABS: ANISOCYTOSIS 1+; BAND 1 % (0-10); EOSINOPHIL 2 % (0-4); NEUTROPHILS 75 % (42.0-75.2); PLATELET ESTIMATE NORMAL (NORMAL)
[2021-01-27 14:53] LABS: LYMPHOCYTE 14 % (20.0-51.0)
[2021-01-27 15:42] VITALS: BP 113/50; PULSE 55
== END 2021-01-27 15:55 ==
LOC: COL.ER 13:41
PROVIDERS: Emergency Medicine
DX: M96.830 Postprocedural hemorrhage of a musculoskeletal structure following a musculoskeletal system procedure (principal); G20 Parkinson's disease; K21.9 Gastro-esophageal reflux disease without esophagitis; E03.9 Hypothyroidism, unspecified; Z79.890 Hormone replacement therapy; Z79.899 Other long term (current) drug therapy
CPT/HCPCS: J7030

== ENCOUNTER 2021-01-29 15:36 | Inpatient (IN) | payer MEDICARE ==
[~2021-01-29] VITALS: Ht 152.4 cm; Wt 58.6 kg
[2021-01-29 16:59] LABS: MEAN CELL VOLUME 93 fl (80.0-100.0); MEAN CORPUSCULAR HGB CONC 33 g/dl (33.0-37.0); MEAN PLATELET VOLUME 8.7 fl (7.4-10.4); PLATELET COUNT 193 K/mm3 (130-400); RED BLOOD COUNT 2.74 M/mm3 (4.10-5.30); REDCELL DISTRIBUTION WIDTH-CV 15.4 % (11.5-14.5)
[2021-01-29 17:00] LABS: HEMATOCRIT 25.4 % (37.0-47.0); HEMOGLOBIN 8.3 g/dl (12.5-16.0); MEAN CORPUSCULAR HEMOGLOBIN 30 pg (27-31)
[2021-01-29 17:17] LABS: ALBUMIN 2.5 gm/dL (3.4-4.8); ALKALINE PHOSPHATASE 109 U/L (40-150); ANION GAP 10 mmol/L (7-16); AST,SGOT 14 U/L (5-34); BILIRUBIN,TOTAL 1.1 mg/dL (0.2-1.2); BLOOD UREA NITROGEN 21 mg/dL (10-20); CALCIUM 8.1 mg/dL (8.4-10.2); CARBON DIOXIDE 24 mmol/L (23-31); CHLORIDE 103 mmol/L (98-107); CREATININE, serum 1.14 mg/dL (0.57-1.11); GLUCOSE 86 mg/dL (70-99); POTASSIUM 4.1 mmol/L (3.5-4.5); SODIUM 137 mmol/L (136-145); TOTAL PROTEIN 5.5 gm/dL (6.2-8.1)
[2021-01-29 17:18] LABS: ALANINE AMINOTRANSFERASE < 6 U/L (0-55)
[2021-01-29 17:43] LABS: BAND 2 % (0-10); EOSINOPHIL 1 % (0-4); LYMPHOCYTE 18 % (20.0-51.0); NEUTROPHILS 69 % (42.0-75.2); PLATELET ESTIMATE NORMAL (NORMAL)
[2021-01-29 22:18] VITALS: BP 95/61; PULSE 51; TEMP 97.2
[2021-01-29] MEDS ORDERED: ULTRAM 50MG TAB50 MG PO (22:31)
[2021-01-29] MEDS ORDERED: MIRALAX PA17 GM/Dose PO ×2 (22:32→22:33)
[2021-01-29] MEDS ORDERED: SENNA-LAX8.6 MG PO (22:34)
[2021-01-29] MEDS ORDERED: COLACE 100100 MG/CAP PO (22:35)
[2021-01-29] MEDS ORDERED: SYNTHROID0.05 MG/TA PO (22:41)
[2021-01-29] MEDS ORDERED: PROTONIX 40MG T40 MG PO (22:43)
[2021-01-29] MEDS ORDERED: TYLENOL 325MG325 MG PO (22:50)
[2021-01-29 23:43] VITALS: BP 103/57; PULSE 53; TEMP 97.5
[2021-01-30 00:30] LABS: COLLECTION METHOD CATHETER
[2021-01-30 00:36] LABS: PH 5 (5-8); SQUAMOUS EPITHELIAL None Seen /hpf (0-10); URINE APPEARANCE Clear (CLEAR/HAZY); URINE BACTERIA None Seen /hpf (NONE SEEN); URINE BILIRUBIN Negative (NEGATIVE); URINE BLOOD 1+ (NEGATIVE); URINE COLOR Yellow (YELLOW); URINE GLUCOSE Negative (NEGATIVE); URINE KETONE Negative (NEGATIVE); URINE LEUKOCYTE ESTERASE Trace (NEGATIVE); URINE NITRATE Negative (NEGATIVE); URINE PROTEIN(semi-quant) Negative (NEGATIVE); URINE RBC 0-2 /hpf (0-2); URINE UROBILINOGEN Negative (NEGATIVE)
[2021-01-30 04:29] VITALS: BP 95/55; PULSE 56; TEMP 97.1
--- NOTE | 2021-01-30 05:28 | NUR ---
PT SLEEPING @ THIS TIME. RESPIRATIONS UNLABORED. IVF INFUSING. BED ALARM ON. CALL LIGHT WITHIN REACH. PT ARRIVED TO UNIT LAST NIGHT @ 2200 FROM ED. TRANSFERRED FROM CART TO BED WITH 3 ASSIST ET SLIDEBOARD. PT HAS HIP SPICA DRESSING IN PLACE TO RIGHT HIP ET BUTTOCK. DOTSON CATHETER DRAINING CLEAR YELLOW URINE. PT DENIES PAIN @ REST BUT GRIMACES ET GROANS WHEN REPOSITIONED. PT IS A&O X4 BUT IS FORGETFUL. PT REFUSED SENEMET LAST NIGHT, STATED THAT SHE WOULD BECOME NAUSEOUS ET SICK IF SHE TOOK IT WITHOUT FOOD. PT OFFERED SNACK BUT CONTINUED TO REFUSE MEDICATION. PT DID EAT SNACK OF PUDDING WITH NO PROBLEMS, DENIES ANY NAUSEA. ICE PACK PLACED TO RIGHT HIP. SCDs IN PLACE TO BILATERAL LEGS. BILATERAL LOWER EXTREMITIES ARE EDEMATOUS ET BRUISED. MEPILEX DRESSING IS IN PLACE TO LEFT ELBOW OVER SKIN TEAR, PT STATES THAT IT IS FROM ONE OF HER FALLS. PT EDUCATED HELPER METAL HANGING LIGHT ET FALL PRECAUTIONS, DEMONSTRATES UNDERSTANDING.
[2021-01-30 07:20] LABS: BASO # 0.1 K/mm3 (0.0-0.2); BASO % 1.2 % (0.0-2.0); EOS # 0.3 K/mm3 (0.0-0.7); EOS % 5.9 % (0.0-4.0); GRAN # 2.6 K/mm3 (1.4-6.5); GRAN % 59.8 % (42.2-75.2); LYMPH % 22.5 % (20.0-51.0); MEAN CELL VOLUME 92 fl (80.0-100.0); MEAN CORPUSCULAR HGB CONC 33 g/dl (33.0-37.0); MEAN PLATELET VOLUME 8.8 fl (7.4-10.4); MONO # 0.4 K/mm3 (0.1-0.6); MONO % 9.2 % (1.7-9.3); PLATELET COUNT 175 K/mm3 (130-400); REDCELL DISTRIBUTION WIDTH-CV 15.4 % (11.5-14.5)
[2021-01-30 07:24] LABS: HEMATOCRIT 24.9 % (37.0-47.0); HEMOGLOBIN 8.2 g/dl (12.5-16.0); MEAN CORPUSCULAR HEMOGLOBIN 30 pg (27-31)
[2021-01-30 07:38] LABS: CREATININE, serum 1.05 mg/dL (0.57-1.11)
[2021-01-30 08:14] VITALS: BP 95/51; PULSE 56; TEMP 97.7
[2021-01-30 13:05] VITALS: BP 81/41; PULSE 57; TEMP 97.9
[2021-01-30 16:40] VITALS: BP 83/52; PULSE 54; TEMP 97.6
[2021-01-30 17:41] LABS: HEMOGLOBIN 7.8 g/dl (12.5-16.0)
--- NOTE | 2021-01-30 19:15 | NUR ---
RECEIVED CHANGE OF SHIFT REPORT FROM DAY SHIFT RN.
[2021-01-30 19:20] VITALS: BP 89/57; PULSE 81; TEMP 98
[2021-01-30 22:51] VITALS: BP 90/59; PULSE 69; TEMP 98
[2021-01-31 03:35] VITALS: BP 84/55; PULSE 60; TEMP 98
--- NOTE | 2021-01-31 06:51 | NUR ---
CHANGE OF SHIFT REPORT GIVEN TO DAY SHIFT RNPRINCE.
[2021-01-31 07:00] LABS: BASO % 0.6 % (0.0-2.0); EOS # 0.3 K/mm3 (0.0-0.7); EOS % 6.4 % (0.0-4.0); GRAN # 3.3 K/mm3 (1.4-6.5); GRAN % 67.7 % (42.2-75.2); LYMPH # 0.8 K/mm3 (1.2-3.4); LYMPH % 16.5 % (20.0-51.0); MEAN CELL VOLUME 94 fl (80.0-100.0); MEAN CORPUSCULAR HGB CONC 32 g/dl (33.0-37.0); MEAN PLATELET VOLUME 8.8 fl (7.4-10.4); MONO # 0.4 K/mm3 (0.1-0.6); MONO % 7.6 % (1.7-9.3); PLATELET COUNT 173 K/mm3 (130-400); RED BLOOD COUNT 2.52 M/mm3 (4.10-5.30); REDCELL DISTRIBUTION WIDTH-CV 15.8 % (11.5-14.5)
[2021-01-31 07:23] LABS: HEMATOCRIT 23.8 % (37.0-47.0); HEMOGLOBIN 7.7 g/dl (12.5-16.0); MEAN CORPUSCULAR HEMOGLOBIN 31 pg (27-31)
[2021-01-31 07:29] LABS: CALCIUM 7.7 mg/dL (8.4-10.2); CREATININE, serum 0.88 mg/dL (0.57-1.11); POTASSIUM 3.8 mmol/L (3.5-4.5)
[2021-01-31 08:19] VITALS: BP 91/49; PULSE 61; TEMP 97.6
--- NOTE | 2021-01-31 10:19 | NUR ---
Patient assisted to the bathroom by this RN. Patient had a medium sized, formed BM. Spica is CDI. Patient c/o mild pain only when moving. Requested to stay sitting in wheelchair, as the recliner is too uncomfortable.
[2021-01-31 11:24] VITALS: BP 104/52; PULSE 60; TEMP 97.4
--- NOTE | 2021-01-31 11:30 | NUR ---
Received report from GILMER Bose. Pt is alert and oriented with hip spica in place. Assisted pt to the commode as she stated she felt she needed an bowel movement. Pt did have some smear on her bed pad. Call light within reach
--- NOTE | 2021-01-31 12:00 | NUR ---
Assisted pt back to bed. She was not able to have a bowel movement. Pt wanting to rest, no other needs verbalized
--- NOTE | 2021-01-31 14:30 | NUR ---
Pt family brought her in something to eat. Pt grateful as she did not want the lunch provided by the hospital. Pain not having any pain complaints at this time. Hip spica remains in place. Call light within reach, will continue to monitor
[2021-01-31 16:29] VITALS: BP 128/49; PULSE 61; TEMP 97.7
[2021-01-31 19:01] VITALS: BP 135/65; PULSE 64; TEMP 98.2
--- NOTE | 2021-01-31 19:03 | NUR ---
RECEIVED CHANGE OF SHIFT REPORT FROM DAY SHIFT RN.
--- NOTE | 2021-01-31 22:00 | NUR ---
PATIENT HAD COMPLAINED OF DIZZINESS WHEN EATING DURING SUPPER, CURRENTLY RESTING/SLEEPING, DOES NOT WAKE WHEN NURSING ENTERS ROOM. OBSERVED BREATHING NONLABORED AND EVEN. DOTSON IN PLACE. REMAINS ON ROOM AIR. IV FLUIDS INFUSING WITH NO PROBLEMS.
[2021-01-31 23:21] VITALS: BP 106/41; PULSE 63; TEMP 98
--- NOTE | 2021-02-01 02:12 | NUR ---
PATIENT REPOSITIONED UP IN BED AFTER WAKING FROM SLEEP WHEN NURSING ENTERED ROOM TO ADD IV FLUIDS TO CURRENT IV LINE. DENIES ANY CHEST PAIN/SOA AT THIS TIME. REMAINS ON ROOM AIR. DOTSON IN PLACE. IV FLUIDS INFUSING WITH NO PROBLEMS.
[2021-02-01 02:57] VITALS: BP 134/50; PULSE 57; TEMP 98
--- NOTE | 2021-02-01 02:57 | NUR ---
DENIES C/O DIZZINESS WHEN UP TO BSC, ABLE TO STAND DURING REWRAPPING OF R HIP SPICA. NO ACTIVE DRAINAGE FROM R HIP INCISIONAL AREA WITH ABD DRSG CLEAR/NO DRAINAGE OBSERVED.
--- NOTE | 2021-02-01 07:06 | NUR ---
CHANGE OF SHIFT REPORT GIVEN TO DAY SHIFT RNJILLIAN.
[2021-02-01 07:49] VITALS: BP 141/41; PULSE 62; TEMP 97.8
--- NOTE | 2021-02-01 11:18 | NUR ---
Patient alert and oriented, answers questions appropriately. See assessment. Left gluteal hematoma with moderate bruising, swelling noted. Incision from previous right gamma nail with edges well approximated, slight redness, no drainage noted. FWB. Uses walker and gait belt for ambulation. No c/o at this time.
[2021-02-01 12:06] VITALS: BP 128/44; PULSE 62; TEMP 98.3
--- NOTE | 2021-02-01 15:22 | NUR ---
Spivey catheter discontinued per Drs order, tolerated well. Светлана-care completed.
[2021-02-01 15:45] VITALS: BP 122/42; PULSE 61; TEMP 97.7
--- NOTE | 2021-02-01 16:18 | NUR ---
Aliyah met with the pt, daughter ,Marleny bedside [phone]. The pt came from [facility] for rehab. The daughter reports her mother PCP is Jak Kenney and gets medications from [facility]. The does have DPOA-hc and its Nambe. The daughter reports she is upset how her mother has been treated and no one is contacting her. Aliyah requested Dr. Avendaño speak to daughter. D/c: back to [facility]
--- NOTE | 2021-02-01 16:30 | NUR ---
Report to Dr Avendaño urine culture with yeast growth, states no treatment needed.
--- NOTE | 2021-02-01 18:00 | NUR ---
Patient c/o vaginal itching, Yuki PETERSON, notified. Order for Diflucan received.
[2021-02-01 19:06] VITALS: BP 116/44; PULSE 66; TEMP 98
--- NOTE | 2021-02-01 21:52 | NUR ---
IV ROCEPHIN GIVEN PER PATENT SL TO LEFT FOREARM. REFUSED HS SINEMET.
--- NOTE | 2021-02-02 00:05 | NUR ---
PT INCONTINENT OF URINE. HAS REDNESS AND SWELLING OF LABIA. REDNESS TO PURA AREA WELL. REMOVED FOAM DRSG TO COCCYX, HAS MEPILEX TO RT HIP AND FOAM DRSG TO SPINE X2. INCISIONS X3 TO RT HIP, SMALL BRUISE TO RT BUTTOCK. EDEMA PRESENT TO BOTH LOWER LEGS. HAS SCDS ON. SL TO LEFT FOREARM FLUSHES WELL. IS ALERT AND ORIENTED.
[2021-02-02 03:32] VITALS: BP 120/49; PULSE 58; TEMP 97.9
[2021-02-02 08:00] VITALS: BP 125/46; PULSE 62; TEMP 97.4
--- NOTE | 2021-02-02 09:50 | NUR ---
Clinical updates faxed to Eamon at [facility]. Carla swab requested and awaiting clinical review from [facility] on a transportation time.
[2021-02-02] MEDS ORDERED: DIFLUCAN150 MG PO ×2 (10:54)
[2021-02-02] MEDS ORDERED: FERROUS SU325 MG/TAB PO (10:55)
[2021-02-02 11:31] VITALS: BP 111/46; PULSE 60; TEMP 97.2
--- NOTE | 2021-02-02 12:04 | NUR ---
Patient alert and oriented, answers questions appropriately. See assessment. Right gluteal hematoma with slight bruising noted, no drainage noted to site. FWB to RLE. Previous right hip gamma nail site with edges well approximated, no redness or drainage noted. Patient has 2+ edema noted to labia with redness noted, complains of itching to labia. No other c/o pain or discomfort. No other c/o at this time.
--- NOTE | 2021-02-02 13:26 | NUR ---
SW contacted by [facility] who states that they are able to accept this patient. [facility] contacted x2. Each occurrence the rep was able to start an authorization but due to their system failure, both were unsuccessful. Contact made with [facility] to informed of the above. Emails and messages left with [facility] representatives.
--- NOTE | 2021-02-02 15:23 | NUR ---
Third phone call made to Anh. Rep states that she will have to put in a ticket as the patient's insurance is not showing accurate effective dates which is why the authorization is not going through. Biller states she will call me in an hour with a reference number for the phone call.
[2021-02-02 16:00] VITALS: BP 123/48; PULSE 56
[2021-02-02 19:22] VITALS: BP 146/61; PULSE 68; TEMP 97.2
--- NOTE | 2021-02-02 21:18 | NUR ---
MEDICATED WITH TRAMADOL 50MG PO FOR RT HIP PAIN.
[2021-02-03 00:31] VITALS: BP 135/52; PULSE 57; TEMP 97.5
--- NOTE | 2021-02-03 02:04 | NUR ---
ASSESSMENT DONE. INT TO L FA PATENT. SOME C/O NAUSEA, EMESIS BUCKET PROVIDED, REFUSED ZOFRAN. REDNESS NOTED UNDER BOTH BREASTS. DENIES PAIN. CALL LIGHT MONTRELL CAMPO.
[2021-02-03 03:45] VITALS: BP 112/55; PULSE 74; TEMP 97.6
[2021-02-03 07:54] VITALS: BP 127/48; PULSE 65; TEMP 97.8
--- NOTE | 2021-02-03 11:15 | NUR ---
[facility] provided Reference # [id number] for patient's skilled care stay at [facility] today. community health outreach worker met with patient and contacted Marleny Cobb via phone and presented IM. Eamon accepts patient for a skilled stay at [facility] today and arranges their facility van to transport today at 2:00. Worker arranged for Marleny to speak to patient's providers regarding care questions. Worker faxed discharge orders to [facility].
[2021-02-03 11:49] VITALS: BP 124/47; PULSE 58; TEMP 97.5
[2021-02-03 12:34] VITALS: BP 124/47; PULSE 58; TEMP 97.5
--- NOTE | 2021-02-03 13:03 | NUR ---
Patient alert and oriented, answers questions appropriately. See assessment. Right hip incision with foam dressing in place, no drainage noted, small area of bruising noted. FWB. SCDs in place. Uses FWW and gait belt for ambulation. No c/o at this time.
--- NOTE | 2021-02-03 15:09 | NUR ---
Patient transfered to [facility] via wheelchair with transportation staff at 1500. Report called to Meghan. Paperwork sent.
== END 2021-02-03 15:00 | DRG 920 ==
LOC: COL.ER 15:36 → SURG 20:23
PROVIDERS: Internal Medicine; Physician Assistant; Student in an Organized Health Care Education/Training Program; ADMIT Student in an Organized Health Care Education/Training Program
DX: L76.22 Postprocedural hemorrhage of skin and subcutaneous tissue following other procedure (principal); D62 Acute posthemorrhagic anemia; M97.01XA Periprosthetic fracture around internal prosthetic right hip joint, initial encounter; N39.0 Urinary tract infection, site not specified; M79.81 Nontraumatic hematoma of soft tissue; G20 Parkinson's disease; E03.9 Hypothyroidism, unspecified; K21.9 Gastro-esophageal reflux disease without esophagitis; Z20.822 Contact with and (suspected) exposure to COVID-19; Z66 Do not resuscitate; K59.00 Constipation, unspecified; Y83.9 Surgical procedure, unspecified as the cause of abnormal reaction of the patient, or of later complication, without mention of misadventure at the time of the procedure; Z79.82 Long term (current) use of aspirin; Z86.16 Personal history of COVID-19; Z90.710 Acquired absence of both cervix and uterus; Z91.81 History of falling; Z87.891 Personal history of nicotine dependence; Z88.2 Allergy status to sulfonamides; Z88.0 Allergy status to penicillin
CPT/HCPCS: 99223-AI; 99232-AI; 99233-AI; 99239; A4314; A9284; J0696; J1200; J1756; J7030; Q9967